=== PATIENT | female | born 1935 | race Asian ===

== ENCOUNTER → 2016-06-14 | Outpatient (CLI) | payer MEDICARE, OTHER, MEDICAID | END | disposition home or self-care (01) | LOC: RADPV 14:20 | PROVIDERS: ATTEND Internal Medicine Pulmonary Disease | DX: M17.12 Unilateral primary osteoarthritis, left knee (principal) ==

== ENCOUNTER → 2016-08-27 | Outpatient (CLI) | payer MEDICARE, OTHER, MEDICAID | END | disposition home or self-care (01) | LOC: RADPV 09:44 | PROVIDERS: ATTEND Internal Medicine | DX: J98.11 Atelectasis (principal); I70.0 Atherosclerosis of aorta | CPT/HCPCS: 71020 ==

== ENCOUNTER → 2017-01-04 | Outpatient (CLI) | payer MEDICARE, OTHER, MEDICAID | END | disposition home or self-care (01) | LOC: RADPV 12:08 | PROVIDERS: ATTEND Internal Medicine | DX: I08.3 Combined rheumatic disorders of mitral, aortic and tricuspid valves (principal) | CPT/HCPCS: 93306 ==

== ENCOUNTER → 2017-12-12 | Outpatient (CLI) | payer MEDICARE, OTHER | END | disposition home or self-care (01) | LOC: RADPV 10:29 | PROVIDERS: ATTEND Internal Medicine | DX: I70.0 Atherosclerosis of aorta (principal); R06.02 Shortness of breath ==

== ENCOUNTER → 2018-01-03 | Outpatient (CLI) | payer MEDICARE, OTHER | END | disposition home or self-care (01) | LOC: RADPV 10:03 | PROVIDERS: ATTEND Internal Medicine | DX: I08.3 Combined rheumatic disorders of mitral, aortic and tricuspid valves (principal) | CPT/HCPCS: 93306 ==